=== PATIENT | male | born 1940 | race Caucasian/White ===

== ENCOUNTER → 2016-10-25 | Outpatient (CLI) | payer MEDICARE | LOC: RAD 13:38 | PROVIDERS: ATTEND Urology | DX: C67.9 Malignant neoplasm of bladder, unspecified (principal) | CPT/HCPCS: 76770 ==

== ENCOUNTER 2017-03-28 21:41 | Emergency (ER) | payer MEDICARE ==
[2017-03-28 21:55] VITALS: BP 157/74
== END 2017-03-28 23:17 | disposition left against medical advice (07) ==
LOC: ER 21:41
DX: Z53.21 Procedure and treatment not carried out due to patient leaving prior to being seen by health care provider (principal)

== ENCOUNTER → 2017-07-28 | Outpatient (CLI) | payer MEDICARE, MEDICAID ==
--- NOTE | 2017-07-28 16:46 | XCELERA REPORT ---
[address] [address] Lower Extremity Venous Evaluation Name: LOUIS LEONG Age: 77 yrs Gender: Male : 1940 Patient Status: Outpatient Patient Location: Study Date: 07/28/2017 10:58 AM Procedure: Color flow and duplex imaging of the veins of the left lower extremity as well as the right Common Femoral vein. Reason For Study: LLE EDEMA Ordering Physician: TRACI HOOPER Performed By: Rut Veliz Right Sided Venous Evaluation The right common femoral vein is fully compressible. Spontaneous and phasic flow is present in the right common femoral vein. Left Sided Venous Evaluation Normal vessel filling wall to wall, compression and augmentation as well as Colour flow down to the infrageniculate veins. Interpretation Summary No duplex evidence of DVT or obstruction in the left lower extremity nor in the right Common Femoral vein. : TRACI HOOPER > Toby Fang
== END ==
LOC: SP 10:53
PROVIDERS: ATTEND Nurse Practitioner
DX: R60.0 Localized edema (principal)
CPT/HCPCS: 93971

== ENCOUNTER → 2018-03-06 | Outpatient (CLI) | payer MEDICARE, MEDICAID ==
--- NOTE | 2018-03-07 08:08 | XCELERA REPORT ---
[address] [address] Lower Extremity Venous Evaluation Name: LOUIS LEONG Age: 78 yrs Gender: Male : 1940 Patient Status: Outpatient Patient Location: Study Date: 03/06/2018 03:30 PM Procedure: Color flow and duplex imaging bilaterally of the veins of the lower extremities as well as the Common Femoral veins. Reason For Study: BLE EDEMA Ordering Physician: MABEL BERNARD Performed By: Mohinder Santoyo Right Sided Venous Evaluation Normal vessel filling wall to wall, compression and augmentation as well as Colour flow down to the infrageniculate veins. Left Sided Venous Evaluation Normal vessel filling wall to wall, compression and augmentation as well as Colour flow down to the infrageniculate veins. Interpretation Summary No duplex evidence of DVT or obstruction in the bilateral lower extremities. : MABEL BERNARD > Toby Fang
== END ==
LOC: SP 14:50
PROVIDERS: ATTEND Physician Assistant
DX: R60.0 Localized edema (principal)
CPT/HCPCS: 93970

== ENCOUNTER → 2019-02-22 | Outpatient (CLI) | payer MEDICARE, MEDICAID ==
[2019-02-22 13:58] LABS: ABSOLUTE EOSINOPHILS # (AUTO) 0.1 10^3/uL (0.0-0.6); ABSOLUTE LYMPHOCYTES (AUTO) 1.6 10^3/uL (0.5-4.7); ABSOLUTE MONOCYTES (AUTO) 0.6 10^3/uL (0.1-1.4); ABSOLUTE NEUT (AUTO) 2.6 10^3/uL (1.7-8.2); BASOPHILS % (AUTO) 0.1 % (0-2); EOSINOPHILS % (AUTO) 1.9 % (0-6); HEMATOCRIT 46.5 % (37.9-51.0); HEMOGLOBIN 15.8 g/dL (13.5-17.0); LYMPHOCYTES % (AUTO) 31.6 % (13-45); MEAN CORPUSCULAR VOLUME 103 fl (80-97); MONOCYTES % (AUTO) 12.8 % (3-13); PLATELET COUNT 127 10^3/uL (150-450); RED BLOOD COUNT 4.52 10^6/uL (4.35-5.55); RED CELL DISTRIBUTION WIDTH 12.9 % (11.5-14.0); SEGMENTED NEUTROPHILS % (AUTO) 53.6 % (42-78); TOTAL CELLS COUNTED % (AUTO) 100 %; WHITE BLOOD COUNT 4.9 10^3/uL (4.0-10.5)
[2019-02-22 14:23] LABS: ANION GAP 13 (5-19); BLOOD UREA NITROGEN 17 mg/dL (7-20); CALCIUM 9.5 mg/dL (8.4-10.2); CARBON DIOXIDE 28 mmol/L (22-30); CHLORIDE 100 mmol/L (98-107); GLUCOSE 97 mg/dL (75-110); POTASSIUM 4.6 mmol/L (3.6-5.0); SODIUM 140.6 mmol/L (137-145)
[2019-02-22 14:24] LABS: APPEARANCE,URINE CLEAR; BILIRUBIN,URINE NEGATIVE (NEGATIVE); COLOR,URINE YELLOW; GLUCOSE, URINE NEGATIVE (NEGATIVE); KETONES,URINE NEGATIVE (NEGATIVE); LEUKOCYTE ESTERASE,URINE NEGATIVE (NEGATIVE); NITRITE,URINE NEGATIVE (NEGATIVE); PROTEIN,URINE NEGATIVE (NEGATIVE); URINE SPECIFIC GRAVITY 1.025; UROBILINOGEN,URINE NEGATIVE mg/dL (<2.0)
--- NOTE | 2019-02-22 14:28 | RADIOLOGY REPORT (SQ) ---
EXAM DESCRIPTION: CHEST PA/LATERAL COMPLETED DATE/TIME: 02/22/2019 1:23 pm REASON FOR STUDY: PRE-OP Z01.810 ENCOUNTER FOR PREPROCEDURAL CARDIOVASCULAR EXAMINATI Z01.811 ENCO UNTER FOR PREPROCEDURAL RESPIRATORY EXAMINATION COMPARISON: 07/25/2016 NUMBER OF VIEWS: Two view. TECHNIQUE: Frontal and lateral radiographic views of the chest acquired. LIMITATIONS: None. FINDINGS: LUNGS AND PLEURA: No opacities, masses or pneumothorax. No pleural effusion. Attenuated bl ood vessels and flattened sahwna-diaphragms. MEDIASTINUM AND HILAR STRUCTURES: No masses. No contour abnormalities. HEART AND VASCULAR STRUCTURES: Heart normal in size and contour. No evidence for failure. BONES: No acute findings. HARDWARE: None in the chest. OTHER: No other significant finding. IMPRESSION: COPD. NO ACUTE RADIOGRAPHIC FINDING IN THE CHEST. TECHNICAL DOCUMENTATION: JOB ID: [id number] [employer]- All Rights Reserved Reading location - IP/workstation name: [email or web address]
--- NOTE | 2019-02-22 17:45 | EKG REPORT ---
SEVERITY:- NORMAL ECG - SINUS RHYTHM : Confirmed by: Flor Whatley 22-Feb-2019 17:43:57
== END ==
LOC: OD 12:20
PROVIDERS: ATTEND Orthopaedic Surgery
DX: Z01.810 Encounter for preprocedural cardiovascular examination (principal); Z01.811 Encounter for preprocedural respiratory examination; Z01.812 Encounter for preprocedural laboratory examination; M17.12 Unilateral primary osteoarthritis, left knee; I10 Essential (primary) hypertension; J44.9 Chronic obstructive pulmonary disease, unspecified
CPT/HCPCS: 36415; 71046; 80048; 81001; 85025; 93005; 93010

== ENCOUNTER → 2019-05-17 | Outpatient (CLI) | payer MEDICARE, MEDICAID ==
[2019-05-17 11:18] LABS: ABSOLUTE EOSINOPHILS # (AUTO) 0.2 10^3/uL (0.0-0.6); ABSOLUTE LYMPHOCYTES (AUTO) 1.4 10^3/uL (0.5-4.7); ABSOLUTE MONOCYTES (AUTO) 0.5 10^3/uL (0.1-1.4); ABSOLUTE NEUT (AUTO) 2.3 10^3/uL (1.7-8.2); BASOPHILS % (AUTO) 0.4 % (0-2); EOSINOPHILS % (AUTO) 3.6 % (0-6); HEMATOCRIT 45.6 % (37.9-51.0); HEMOGLOBIN 15.5 g/dL (13.5-17.0); LYMPHOCYTES % (AUTO) 31.9 % (13-45); MEAN CORPUSCULAR HEMOGLOBIN 35.6 pg (27.0-33.4); MEAN CORPUSCULAR VOLUME 105 fl (80-97); MONOCYTES % (AUTO) 11.5 % (3-13); PLATELET COUNT 117 10^3/uL (150-450); RED BLOOD COUNT 4.35 10^6/uL (4.35-5.55); RED CELL DISTRIBUTION WIDTH 13.2 % (11.5-14.0); SEGMENTED NEUTROPHILS % (AUTO) 52.6 % (42-78); TOTAL CELLS COUNTED % (AUTO) 100 %; WHITE BLOOD COUNT 4.3 10^3/uL (4.0-10.5)
[2019-05-17 11:20] LABS: APPEARANCE,URINE CLEAR; BILIRUBIN,URINE NEGATIVE (NEGATIVE); COLOR,URINE YELLOW; GLUCOSE, URINE NEGATIVE (NEGATIVE); KETONES,URINE NEGATIVE (NEGATIVE); LEUKOCYTE ESTERASE,URINE NEGATIVE (NEGATIVE); NITRITE,URINE NEGATIVE (NEGATIVE); PROTEIN,URINE NEGATIVE (NEGATIVE); URINE SPECIFIC GRAVITY 1.017; UROBILINOGEN,URINE NEGATIVE mg/dL (<2.0)
--- NOTE | 2019-05-17 11:24 | EKG REPORT ---
SEVERITY:- ABNORMAL ECG - SINUS RHYTHM MULTIPLE VENTRICULAR PREMATURE COMPLEXES : Confirmed by: Flor Whatley 17-May-2019 11:24:13
[2019-05-17 11:34] LABS: ANION GAP 6 (5-19); BLOOD UREA NITROGEN 17 mg/dL (7-20); CALCIUM 9.3 mg/dL (8.4-10.2); CARBON DIOXIDE 32 mmol/L (22-30); CHLORIDE 102 mmol/L (98-107); GLUCOSE 99 mg/dL (75-110); POTASSIUM 4.6 mmol/L (3.6-5.0)
--- NOTE | 2019-05-17 13:24 | RADIOLOGY REPORT (SQ) ---
EXAM DESCRIPTION: CHEST PA/LATERAL COMPLETED DATE/TIME: 05/17/2019 10:10 am REASON FOR STUDY: PRE-OP COMPARISON: 02/22/2019 EXAM PARAMETERS: NUMBER OF VIEWS: two views TECHNIQUE: Digital Frontal and Lateral radiographic views of the chest acquired. RADIATION DOSE: NA LIMITATIONS: none FINDINGS: LUNGS AND PLEURA: No opacities, masses or pneumothorax. No pleural effusion. MEDIASTINUM AND HILAR STRUCTURES: No masses or contour abnormalities. HEART AND VASCULAR STRUCTURES: There is ectasia of the ascending aorta. BONES: Old rib fractures on the left. HARDWARE: None in the chest. OTHER: No other significant finding. IMPRESSION: No acute cardiopulmonary finding. There is ectasia of the ascending aorta. TECHNICAL DOCUMENTATION: JOB ID: [id number] [employer]- All Rights Reserved Reading location - IP/workstation name: [email or web address]
== END ==
LOC: OD 09:27
PROVIDERS: ATTEND Orthopaedic Surgery
DX: Z01.812 Encounter for preprocedural laboratory examination (principal); Z01.810 Encounter for preprocedural cardiovascular examination; Z01.12 Encounter for hearing conservation and treatment
CPT/HCPCS: 36415; 71046; 80048; 81001; 85025; 93005; 93010

== ENCOUNTER 2019-06-11 06:03 | Inpatient (IN) | payer MEDICARE, MEDICAID ==
[~2019-06-11 06:03] MED LIST: BUPIVACAINE INJ/PF LIPOSOME/PF 266 MG/20 ML SDV INJ PRN; CEFAZOLIN 1 GM/D5W RTU 1 GM/50 ML RTUPB IV PRN; CEFAZOLIN INJ 1 GM VIAL IV PRN; CEFAZOLIN INJ 1 GM VIAL ONE; IBUPROFEN 800 MG in NORMAL SALINE 250 ML IV PRN; LACTATED RINGERS 1000 ML IV PRN; LIDOCAINE 0.5% INJ-PF (5 MG/ML) 50 ML SDV SUBCUT PRN; OXYCODONE HCL SR 10 MG TABLET PO ONE; OXYCODONE HCL SR 10 MG TABLET PO PRN; PANTOPRAZOLE SODIUM 20 MG TABLET.DR PO ONE; PANTOPRAZOLE SODIUM 20 MG TABLET.DR PO PRN; VANCOMYCIN HCL 1,000 MG in DEXTROSE 5%-WATER 250 ML IV PRN; VANCOMYCIN HCL INJ 1000 MG VIAL IV PRN
[2019-06-11 07:16] LABS: ABSOLUTE EOSINOPHILS # (AUTO) 0.2 10^3/uL (0.0-0.6); ABSOLUTE LYMPHOCYTES (AUTO) 1.3 10^3/uL (0.5-4.7); ABSOLUTE MONOCYTES (AUTO) 0.6 10^3/uL (0.1-1.4); ABSOLUTE NEUT (AUTO) 2.9 10^3/uL (1.7-8.2); BASOPHILS % (AUTO) 0.2 % (0-2); HEMATOCRIT 44.8 % (37.9-51.0); HEMOGLOBIN 15.4 g/dL (13.5-17.0); INTERNATIONAL RATION (INR) 1.06; LYMPHOCYTES % (AUTO) 26.6 % (13-45); MEAN CORPUSCULAR HGB CONC 34.5 g/dL (32.0-36.0); MEAN CORPUSCULAR VOLUME 104 fl (80-97); PLATELET COUNT 120 10^3/uL (150-450); PROTHROMBIN TIME 13.8 SEC (11.4-15.4); RED BLOOD COUNT 4.29 10^6/uL (4.35-5.55); RED CELL DISTRIBUTION WIDTH 12.9 % (11.5-14.0); SEGMENTED NEUTROPHILS % (AUTO) 58.2 % (42-78); TOTAL CELLS COUNTED % (AUTO) 100 %
[2019-06-11 07:17] LABS: PARTIAL THROMBOPLASTIN TIME 33.1 SEC (23.5-35.8)
[2019-06-11] MEDS ORDERED: MIDAZOLAM 2 MG/2 ML INJ ONE (07:20)
[2019-06-11] MEDS ORDERED: LIDOCAINE 2% INJ-PF (20 MG/ML) 10 ML AMPUL ONE (07:20)
[2019-06-11] MEDS ORDERED: PROPOFOL INJ 200 MG/20 ML VIAL IV ONE (07:21)
[2019-06-11] MEDS: BUPIVACAINE HCL 0.25% /EPINEPHRINE INJ/PF 30 ML SDV ONE ×2 (07:45→09:26)
[2019-06-11] MEDS ORDERED: TRANEXAMIC ACID INJ/PF 1,000 MG/10 ML SDV IV ONE (09:01)
[2019-06-11] MEDS ORDERED: OXYCODONE-ACETAMINOPHEN 5-325 MG TABLET PO PRN ×2 (09:46)
[2019-06-11] MEDS ORDERED: FENTANYL CITRATE INJ/PF 100 MCG/2 ML AMPUL IV PRN ×3 (09:46)
[2019-06-11] MEDS ORDERED: DIPHENHYDRAMINE HCL 50 MG/ML VIAL IV PRN ×2 (09:46→09:48)
[2019-06-11] MEDS ORDERED: PROMETHAZINE HCL INJ 25 MG/1 ML VIAL IV PRN ×2 (09:46)
[2019-06-11] MEDS ORDERED: ONDANSETRON HCL INJ/PF 4 MG/2 ML SDV IV PRN ×2 (09:46→09:48)
[2019-06-11] MEDS ORDERED: MEPERIDINE HCL/PF INJ 25 MG/1 ML DISP.SYRIN IV PRN (09:46)
--- NOTE | 2019-06-11 09:47 | Operative Report ---
Operative Report DATE OF SURGERY: 06/11/19 PREOPERATIVE DIAGNOSIS: Right knee arthritis OPERATION: Right knee arthroplasty SURGEON: SHAQ LINDSAY ANESTHESIA: Spinal TISSUE REMOVED OR ALTERED: Bone to pathology ESTIMATED BLOOD LOSS: 50 PROCEDURE: Implants used: Femur: [place] triathlon size 7 CR femur Tibia: 7 tibia Tibial liner: 11 mm CS insert Patella: 40 mm oval patella Procedure with the patient supine on the operating table the right the limb is prepped and draped in a sterile fashion. The limb was elevated for exsanguination and the tourniquet inflated to 280 torr. A standard midline median parapatellar approach the knee is taken. Access is gained to the femoral canal through the intercondylar notch. Intramedullary alignment instrumentation used to resect 10 mm of distal femur in 5 of valgus. Sizing guide indicated a size 7 femur. Appropriate cutting jig is then used to fashion anterior posterior and chamfer cuts. A trial reduction femurs performed and this is judged to be adequate. Attention was next turned to the tibia. Using an extra medullary alignment system 9 millimeters was resected off the lateral tibial plateau. This is sized to a size 7 tibia. A trial reduction was now performed with a 7 femur and a 7 tibia using a 11 millimeters spacer. It is full extension and central patellofemoral tracking. The articular surface the patella was next resected using an oscillating saw. All trial implants were removed. Polymethylmethacrylate is mixed and used to cement the above implants in place. On adequate curing the cement excess cement was removed the tourniquet was deflated hemostasis obtained the wound is then closed in layers using interrupted Vicryl followed by shahrzad. A sterile compressive dressing was applied and the patient returned to recovery room in satisfactory condition.
[2019-06-11] MEDS ORDERED: RINGERS SOLUTION,LACTATED 1,000 ML IV PRN (09:48)
[2019-06-11] MEDS ORDERED: MAG HYDROX/AL HYDROX/SIMETH SUSP 30 ML UDCUP PO PRN (09:48)
[2019-06-11] MEDS ORDERED: ONDANSETRON 4 MG TAB.RAPDIS PO PRN (09:48)
[2019-06-11] MEDS ORDERED: ACETAMINOPHEN 325 MG TABLET PO PRN (09:48)
[2019-06-11] MEDS ORDERED: (PENDING PHARMACY ID) (Umeclidinium Brm/Vilanterol Tr [Anoro Ellipta 62.5-25 Mcg Inh] 1 PU IN SCH (10:00)
[2019-06-11] MEDS ORDERED: (PENDING PHARMACY ID) (Mirabegron [Myrbetriq] 50 MG) PO SCH ×2 (10:00→13:00)
--- NOTE | 2019-06-11 10:43 | RADIOLOGY REPORT (SQ) ---
EXAM DESCRIPTION: KNEE RIGHT 2 VIEWS COMPLETED DATE/TIME: 06/11/2019 10:32 am REASON FOR STUDY: Post OP -Long Cassette in PACU M17.11 UNILATERAL PRIMARY OSTEOARTHRITIS, RIGHT KN EE COMPARISON: None. NUMBER OF VIEWS: Two views TECHNIQUE: Digital radiographic images of the right knee post-procedure. LIMITATIONS: None. FINDINGS: BONES: No worrisome or unexpected findings post-procedure. DEVICE: Right total knee replacement with patellar resurfacing. SOFT TISSUES: No worrisome findings. Expected postoperative soft tissue changes. IMPRESSION: SATISFACTORY POSTOPERATIVE RIGHT KNEE. TECHNICAL DOCUMENTATION: JOB ID: [id number] [employer]- All Rights Reserved Reading location - IP/workstation name: [email or web address]
[2019-06-11] MEDS ORDERED: (PENDING PHARMACY ID) (Umeclidinium Brm/Vilanterol Tr [Anoro Ellipta 62.5-25 Mcg Inh] 1 PU IH SCH (13:00)
[2019-06-11] MEDS: OXYCODONE HCL IR 5 MG TABLET PO PRN (13:42)
[2019-06-11] MEDS: SENNOSIDES/DOCUSATE 8.6-50 MG 1 EACH TABLET PO SCH (17:41)
[2019-06-11] MEDS: GABAPENTIN 100 MG CAPSULE PO SCH (21:29)
[2019-06-11] MEDS: TAMSULOSIN HCL 0.4 MG CAP.SR.24H PO SCH (21:29)
[2019-06-11] MEDS: OXYCODONE HCL SR 10 MG TABLET PO SCH (21:30)
[2019-06-11] MEDS: FINASTERIDE 5 MG TABLET PO SCH (21:30)
[2019-06-11] MEDS ORDERED: VANCOMYCIN HCL 1,000 MG in DEXTROSE 5%-WATER 250 ML IV ONE (21:48)
[2019-06-12] MEDS: PANTOPRAZOLE SODIUM 40 MG TABLET.DR PO SCH ×2 (05:34→07:00)
[2019-06-12 06:39] LABS: HEMATOCRIT 39.9 % (37.9-51.0); HEMOGLOBIN 13.7 g/dL (13.5-17.0); MEAN CORPUSCULAR HEMOGLOBIN 36.3 pg (27.0-33.4); MEAN CORPUSCULAR HGB CONC 34.4 g/dL (32.0-36.0); MEAN CORPUSCULAR VOLUME 106 fl (80-97); PLATELET COUNT 110 10^3/uL (150-450); RED BLOOD COUNT 3.78 10^6/uL (4.35-5.55); RED CELL DISTRIBUTION WIDTH 12.9 % (11.5-14.0); WHITE BLOOD COUNT 7.4 10^3/uL (4.0-10.5)
[2019-06-12 06:58] LABS: ANION GAP 8 (5-19); BLOOD UREA NITROGEN 16 mg/dL (7-20); CARBON DIOXIDE 30 mmol/L (22-30); CHLORIDE 97 mmol/L (98-107); GLUCOSE 122 mg/dL (75-110); POTASSIUM 4.6 mmol/L (3.6-5.0)
--- NOTE | 2019-06-12 06:58 | PDOC PROGRESS REPORT ---
Subjective Progress Note for:: 06/12/19 Reason For Visit: M17.11 UNILATERAL PRIMARY OSTEOARTHRITIS, RIGHT KN 79-year-old white male status post right total knee arthroplasty, postop day 1. Patient complaining of pain and urinary frequency. Physical Exam Vital Signs: Temp Pulse Resp BP Pulse Ox 36.5 C 90 17 136/61 H 93 06/11/19 23:49 06/11/19 23:49 06/11/19 23:49 06/11/19 23:49 06/11/19 23:49 Intake & Output 06/10/19 06/11/19 06/12/19 06:59 06:59 06:59 Intake Total 0 4830 Output Total 3620 Balance 0 1210 Weight 101.7 kg Physical Exam: Elderly white male being transferred from the bed to the recliner. This requires significant assistance. General appearance: PRESENT: mild distress Head exam: PRESENT: normocephalic Respiratory exam: PRESENT: other - Patient on nasal prong oxygen. Cardiovascular exam: PRESENT: RRR Pulses: PRESENT: +1 pedal pulses bilateral Vascular exam: PRESENT: normal capillary refill GI/Abdominal exam: PRESENT: soft Rectal exam: PRESENT: deferred Extremities exam: PRESENT: other - Right lower extremity in a compressive wrap. Toes are exposed. There is brisk capillary refill. Neurological exam: PRESENT: alert, awake, oriented to person, oriented to place, oriented to time, oriented to situation. ABSENT: motor sensory deficit Psychiatric exam: PRESENT: appropriate affect, normal mood. ABSENT: homicidal ideation, suicidal ideation Skin exam: PRESENT: dry, intact, warm. ABSENT: cyanosis, rash Results Laboratory Results: 06/12/19 06:04 06/11/19 06/12/19 06:48 06:04 WBC 5.0 7.4 RBC 4.29 L 3.78 L Hgb 15.4 13.7 Hct 44.8 39.9 MCV 104 H 106 H MCH 36.0 H 36.3 H MCHC 34.5 34.4 RDW 12.9 12.9 Plt Count 120 L 110 L Seg Neutrophils % 58.2 Impressions: Knee X-Ray 06/11/19 09:49 IMPRESSION: SATISFACTORY POSTOPERATIVE RIGHT KNEE. Status: Imported from PACS Assessment & Plan - Diagnosis (1) Arthritis of right knee Is this a current diagnosis for this admission?: Yes Plan: 79-year-old white male status post right knee arthroplasty with an uneventful postoperative course. Patient will continue to work with physical therapy and weightbearing as tolerated ambulatory basis. Although the patient is complaining of pain I am somewhat hesitant to increase his narcotic medication because of his age and pre-existing pulmonary compromise. At this point I think we can continue to listen to his complaints of pain and discern whether or not further pain medication would be beneficial to. - Time Time Spent with patient: Less than 15 minutes Anticipated discharge: SNF Within: within 48 hours - Plan Summary Plan Summary: Mobilized with physical therapy and weightbearing as tolerated basis. Anticipate discharge to [facility], [facility] on .
[2019-06-12] MEDS: OXYCODONE HCL IR 5 MG TABLET PO PRN ×2 (07:00→14:58)
[2019-06-12] MEDS ORDERED: (PENDING PHARMACY ID) (Atenolol [Atenolol] 100 MG) PO SCH (08:00)
[2019-06-12] MEDS: SENNOSIDES/DOCUSATE 8.6-50 MG 1 EACH TABLET PO SCH ×2 (09:08→17:18)
[2019-06-12] MEDS: ATENOLOL 50 MG TABLET PO SCH (09:08)
[2019-06-12] MEDS: RIVAROXABAN 15 MG TABLET PO SCH (09:08)
[2019-06-12] MEDS: PRENATAL VITAMIN W DHA CAPSULE PO SCH (09:08)
[2019-06-12] MEDS: OXYCODONE HCL SR 10 MG TABLET PO SCH ×2 (09:08→21:51)
[2019-06-12] MEDS: GABAPENTIN 100 MG CAPSULE PO SCH (21:51)
[2019-06-12] MEDS: FINASTERIDE 5 MG TABLET PO SCH (21:51)
[2019-06-12] MEDS: TAMSULOSIN HCL 0.4 MG CAP.SR.24H PO SCH (21:51)
[2019-06-13] MEDS: PANTOPRAZOLE SODIUM 40 MG TABLET.DR PO SCH (06:21)
[2019-06-13] MEDS: OXYCODONE HCL IR 5 MG TABLET PO PRN ×2 (06:21→22:29)
--- NOTE | 2019-06-13 06:55 | PDOC PROGRESS REPORT ---
Subjective Progress Note for:: 06/13/19 Reason For Visit: M17.11 UNILATERAL PRIMARY OSTEOARTHRITIS, RIGHT KN 79-year-old white male now postop day 2 status post right knee arthroplasty. Patient complaining of less pain today than yesterday. Limited progress with physical therapy yesterday because of pain. Physical Exam Vital Signs: Temp Pulse Resp BP Pulse Ox 37.1 C 78 16 136/62 H 93 06/13/19 00:15 06/13/19 00:15 06/13/19 00:15 06/13/19 00:15 06/13/19 00:15 Intake & Output 06/11/19 06/12/19 06/13/19 06:59 06:59 06:59 Intake Total 0 5080 820 Output Total 3620 50 Balance 0 1460 770 Weight 101.7 kg 99.9 kg Physical Exam: Elderly white male lying in a hospital bed. The patient is alert, oriented, appropriate. General appearance: PRESENT: mild distress Head exam: PRESENT: normocephalic Respiratory exam: PRESENT: unlabored, other - Nasal prong oxygen Cardiovascular exam: PRESENT: RRR Extremities exam: PRESENT: other - Compressive dressing removed in the right lower extremity. On underlying OpSite dressing with a small amount of old drainage. Surrounding induration and potentially some ecchymosis. Fairly significant flexion contracture. Pillow placed under the patient's right ankle have asked him to tolerate this for 20 minutes at a time. Neurological exam: PRESENT: alert, awake, oriented to person, oriented to place, oriented to time, oriented to situation. ABSENT: motor sensory deficit Psychiatric exam: PRESENT: appropriate affect, normal mood. ABSENT: homicidal ideation, suicidal ideation Skin exam: PRESENT: dry, intact, warm. ABSENT: cyanosis, rash Results Laboratory Results: 06/12/19 06:04 06/12/19 06:04 Sodium 134.8 L Potassium 4.6 Chloride 97 L Carbon Dioxide 30 Anion Gap 8 BUN 16 Creatinine 0.86 Est GFR ( Amer) > 60 Glucose 122 H Calcium 9.0 Impressions: Knee X-Ray 06/11/19 09:49 IMPRESSION: SATISFACTORY POSTOPERATIVE RIGHT KNEE. Status: Imported from PACS Assessment & Plan - Diagnosis (1) Arthritis of right knee Is this a current diagnosis for this admission?: Yes Plan: Patient can be mobilized with physical therapy and weightbearing as tolerated basis. Attention to the developing flexion contracture. - Time Time Spent with patient: 15-24 minutes Anticipated discharge: SNF Within: within 24 hours - Patient planning to be discharged to [facility]
[2019-06-13 07:01] LABS: HEMOGLOBIN 13.5 g/dL (13.5-17.0); MEAN CORPUSCULAR HEMOGLOBIN 36.2 pg (27.0-33.4); MEAN CORPUSCULAR HGB CONC 34.5 g/dL (32.0-36.0); MEAN CORPUSCULAR VOLUME 105 fl (80-97); PLATELET COUNT 101 10^3/uL (150-450); RED BLOOD COUNT 3.71 10^6/uL (4.35-5.55); RED CELL DISTRIBUTION WIDTH 12.9 % (11.5-14.0); WHITE BLOOD COUNT 7.3 10^3/uL (4.0-10.5)
[2019-06-13] MEDS: RIVAROXABAN 15 MG TABLET PO SCH (09:23)
[2019-06-13] MEDS: PRENATAL VITAMIN W DHA CAPSULE PO SCH (09:23)
[2019-06-13] MEDS: SENNOSIDES/DOCUSATE 8.6-50 MG 1 EACH TABLET PO SCH ×2 (09:23→17:13)
[2019-06-13] MEDS: ATENOLOL 50 MG TABLET PO SCH (09:23)
[2019-06-13] MEDS: OXYCODONE HCL SR 10 MG TABLET PO SCH (09:24)
[2019-06-13] MEDS: ANORO ELLIPTA IH SCH ×2 (10:18→17:13)
[2019-06-13] MEDS: FINASTERIDE 5 MG TABLET PO SCH (22:29)
[2019-06-13] MEDS: GABAPENTIN 100 MG CAPSULE PO SCH (22:29)
[2019-06-13] MEDS: TAMSULOSIN HCL 0.4 MG CAP.SR.24H PO SCH (22:29)
[2019-06-14] MEDS: PANTOPRAZOLE SODIUM 40 MG TABLET.DR PO SCH (06:22)
--- NOTE | 2019-06-14 06:28 | PDOC TRANSFER SUMMARY ---
General - Admit/Disc Date/PCP Admission Date/Primary Care Provider: 06/11/19 06:03 SONG YEE III, MD Discharge Date: 06/14/19 - Discharge Diagnosis (1) Arthritis of right knee Is this a current diagnosis for this admission?: Yes Summary: 79-year-old white male with progressive right knee pain and functional disability second osteoarthritis. Patient is admitted for elective right knee arthroplasty. - Additional Information Resuscitation Status: Full Code Discharge Diet: As Tolerated, Regular Discharge Activity: Balance Activity w/Rest, No tub bath Home Medications: Atenolol 100 mg PO QAM 08/07/15 Gabapentin [Neurontin 100 mg Capsule] 200 mg PO QHS 08/07/15 Ranitidine HCl [Acid Project Officer] 150 mg PO BID 08/07/15 Tamsulosin HCl [Flomax 0.4 mg Cap.sr] 0.8 mg PO QHS 08/07/15 Finasteride [Proscar 5 mg Tablet] 5 mg PO QHS 03/01/19 Mirabegron [Myrbetriq] 50 mg PO DAILY 03/01/19 Rivaroxaban [Xarelto 15 mg Tablet] 15 mg PO DAILY 03/01/19 Umeclidinium Brm/Vilanterol Tr [Anoro Ellipta 62.5-25 Mcg INH] 1 puff IN BID 05/28/19 Albuterol Sulfate [Albuterol Sulfate Hfa] 1 puff IH ASDIR PRN 06/11/19 Additional Information: Oxycodone and enteric-coated aspirin History of Present Illness Admission Date/PCP: 06/11/19 06:03 SONG YEE III, MD History of Present Illness: LOUIS LEONG is a 79 year old male 79-year-old white male with progressive right knee pain and functional disability second osteoarthritis. Patient is admitted for elective right knee arthroplasty. Hospital Course Hospital Course: Patient is admitted through the operating where he undergoes uncomplicated right knee arthroplasty. Is returned to floor in satisfactory condition. Day of surgery the patient's makes modest progress with physical therapy. He begins to complain of unrelenting pain which seems to limit his physical therapy on subsequent days. Physical Exam Vital Signs: Temp Pulse Resp BP Pulse Ox 36.7 C 81 17 116/51 L 98 06/13/19 23:49 06/13/19 23:49 06/13/19 23:49 06/13/19 23:49 06/13/19 23:49 Intake & Output 06/12/19 06/13/19 06/14/19 06:59 06:59 06:59 Intake Total 5080 820 1135 Output Total 3620 50 Balance 1528 392 8266 Weight 101.7 kg 99.9 kg 100.6 kg General appearance: PRESENT: no acute distress, mild distress, well-developed, well-nourished Head exam: PRESENT: normocephalic Respiratory exam: PRESENT: unlabored Cardiovascular exam: PRESENT: RRR Pulses: PRESENT: +1 pedal pulses bilateral Vascular exam: PRESENT: normal capillary refill GI/Abdominal exam: PRESENT: soft Rectal exam: PRESENT: deferred Musculoskeletal exam: PRESENT: other - Right knee OpSite dressing with a small amount of old drainage. Surrounding skin is without ecchymosis. There is modest induration. Significant flexion contracture present. Patient's right lower extremity is placed on 2 pillows to allow gravity to assist with extension. Neurological exam: PRESENT: alert, awake, oriented to person, oriented to place, oriented to time, oriented to situation. ABSENT: motor sensory deficit Psychiatric exam: PRESENT: appropriate affect, normal mood. ABSENT: homicidal ideation, suicidal ideation Skin exam: PRESENT: dry, intact, warm. ABSENT: cyanosis, rash Results Laboratory Results: 06/13/19 03:21 06/12/19 06:04 06/13/19 03:21 WBC 7.3 RBC 3.71 L Hgb 13.5 Hct 39.0 MCV 105 H MCH 36.2 H MCHC 34.5 RDW 12.9 Plt Count 101 L Impressions: Knee X-Ray 06/11/19 09:49 IMPRESSION: SATISFACTORY POSTOPERATIVE RIGHT KNEE. Transfer Plan - Time Spent with Patient Time spent with patient: Less than 30 Minutes Qualifiers - * PATIENT BEING DISCHARGED WITH ANY OF THE FOLLOWING DIAGNOSIS: No VTE patient discharged on overlapping Therapy?: Yes Acute Heart Failure - Is this a Heart Failure Patient?: No Plan Discharge Plan: Patient be discharged to [facility] for ongoing nursing and physical t herapy. Physical therapy focus on right knee range of motion, strengthening, weightbearing as tolerated relation. I am concerned about a developing right knee flexion contracture and a solution of this should be 1 of the goals of physical therapy. Time Spent: Less than 30 Minutes
[2019-06-14 07:44] LABS: HEMATOCRIT 33.9 % (37.9-51.0); HEMOGLOBIN 11.7 g/dL (13.5-17.0); MEAN CORPUSCULAR HGB CONC 34.4 g/dL (32.0-36.0); MEAN CORPUSCULAR VOLUME 105 fl (80-97); RED BLOOD COUNT 3.24 10^6/uL (4.35-5.55); RED CELL DISTRIBUTION WIDTH 12.7 % (11.5-14.0); WHITE BLOOD COUNT 6.7 10^3/uL (4.0-10.5)
[2019-06-14 08:25] LABS: PLATELET COUNT 96 10^3/uL (150-450)
[2019-06-14] MEDS: ATENOLOL 50 MG TABLET PO SCH (10:08)
[2019-06-14] MEDS: SENNOSIDES/DOCUSATE 8.6-50 MG 1 EACH TABLET PO SCH (10:08)
[2019-06-14] MEDS: RIVAROXABAN 15 MG TABLET PO SCH (10:08)
[2019-06-14] MEDS: ANORO ELLIPTA IH SCH (10:08)
[2019-06-14] MEDS: PRENATAL VITAMIN W DHA CAPSULE PO SCH (10:08)
[2019-06-14 11:41] VITALS: BP 122/54
[2019-06-14] MEDS ORDERED: ONDANSETRON HCL INJ/PF 4 MG/2 ML SDV IV PRN (13:30)
[2019-06-14] MEDS ORDERED: ONDANSETRON 4 MG TAB.RAPDIS PO PRN (13:30)
== END 2019-06-14 14:32 | DRG 470 ==
LOC: INOR 06:03 → 4S 10:57
PROVIDERS: ADMIT Orthopaedic Surgery; ATTEND Orthopaedic Surgery
PROC: 0SRC0J9 Replacement of Right Knee Joint with Synthetic Substitute, Cemented, Open Approach (ICD-10-PCS; principal; 2019-06-11 08:15)
DX: M17.11 Unilateral primary osteoarthritis, right knee (principal); K21.9 Gastro-esophageal reflux disease without esophagitis; J44.9 Chronic obstructive pulmonary disease, unspecified; N40.0 Benign prostatic hyperplasia without lower urinary tract symptoms; I10 Essential (primary) hypertension; Z91.040 Latex allergy status; Z86.718 Personal history of other venous thrombosis and embolism; Z86.711 Personal history of pulmonary embolism; Z79.02 Long term (current) use of antithrombotics/antiplatelets; Z79.51 Long term (current) use of inhaled steroids; Z79.899 Other long term (current) drug therapy
CPT/HCPCS: 01402; 36415; 80048; 85025; 85027; 85610; 85730; 88304; 88305; 88311; 94799; C1713; C1776; J0690; J1741; J2250; J2704; J3370; J3490; J7050; J7060